=== PATIENT | female | born 1965 | race Hispanic/Latino ===

== ENCOUNTER 2022-04-28 16:36 | Inpatient (IN) | payer BC, SELFPAY ==
[~2022-04-28 16:36] MED LIST: Iopamidol-370 76% 500 ML 1 ML ONE
[2022-04-28] MEDS ORDERED: LORazepam 2 MG/ML SYR.(CARPUJECT) ONE ×2 (17:02→17:03)
[2022-04-28 17:13] LABS: #Eosinphils 0.1 thou/uL (0.0-0.7); #Lymphocytes 0.9 thou/uL (1.20-3.40); #Monocytes 0.3 thou/uL (0.11-0.59); #Neutrophils 5.7 thou/uL (1.40-6.50); %Basophils 0.1 % (0.0-1.0); %Eosinophils 1.9 % (0.0-10.0); %Lymphocytes 12.2 % (21.0-51.0); %Monocytes 4.3 % (0.0-10.0); %Neutrophils 81.5 % (42.0-75.0); Hemoglobin 12.2 g/dL (12.0-16.0); Mean Corpuscular HGB CONC 34.7 g/dL (32.0-36.0); Mean Corpuscular Volume 92.4 fl (78.0-98.0); Mean Platelet Volume 7.4 fL (7.4-10.4); Platelet Count 185 10x3/uL (130-400); RBC Distribution Width 11.2 % (11.5-14.5); Red Blood Cell (RBC) Count 3.82 mill/uL (4.20-5.40)
[2022-04-28 17:34] LABS: ALT (SGPT) 52 U/L (8-55); AST (SGOT) 52 U/L (5-34); Albumin 3.7 g/dL (3.5-5.0); Alkaline Phosphatase 163 U/L (40-110); Anion Gap 10 mmol/L (10-20); BUN (Urea Nitrogen) 15 mg/dL (9.8-20.1); Bilirubin, Total 1.2 mg/dL (0.2-1.2); Calc. Creatinine Clearance 0 mL/min (70-130); Calcium 8.3 mg/dL (7.8-10.44); Carbon Dioxide 25 mmol/L (22-29); Chloride 108 mmol/L (98-107); Estimated GFR 108; Globulin 3.5 g/dL (2.4-3.5); Glucose 98 mg/dL (70-105); Lipase 20 U/L (8-78); Protein, Total 7.2 g/dL (6.0-8.3); Sodium 139 mmol/L (136-145)
[2022-04-28] MEDS ORDERED: Amlodipine 5 MG TAB ONE ×2 (17:50→17:51)
[2022-04-28] MEDS ORDERED: Acetaminophen 500 MG TAB ONE (18:00)
[2022-04-28] MEDS ORDERED: hydrALAZINE 20 MG/ML VIAL ONE (18:24)
[2022-04-28 18:40] LABS: Bilirubin Negative (Negative); Blood, Urine Negative (Negative); Clarity Clear (Clear); Glucose, Urine (Dipstick) Normal (Negative); Ketone, Urine Negative (Negative); Leukocyte Negative Leu/uL (Negative); Nitrite Negative (Negative); Protein, Urine (Dipstick) Negative (Neg-Trace); Specific Gravity, Urine 1.023 (1.002-1.036); Urobilinogen Normal mg/dL (Less than 2); pH, Urine 6.5 (5.0-9.0)
[2022-04-28] MEDS ORDERED: HYDROcodone/Acetaminophen 5/325 mg Tablet PO PRN (19:11)
[2022-04-28] MEDS ORDERED: Ondansetron ODT 4 MG TAB PO PRN (19:11)
[2022-04-28] MEDS ORDERED: Ondansetron PF 4 MG/2 ML Vial IVP PRN (19:11)
[2022-04-28] MEDS ORDERED: Sodium Chloride 0.9% 1,000 ML IV SCH (19:15)
[2022-04-28 20:14] LABS: SARS-CoV-2 NAA Rapid Test Not Detected (NotDetected)
[2022-04-28 21:21] VITALS: BMI 30.2
[2022-04-28] MEDS: Sodium Chloride 0.9% 1,000 ML IV SCH (21:44)
[2022-04-28] MEDS ORDERED: Piperacillin/Tazobactam 3.375 GM in Sodium Chloride 0.9% 100 ML IVPB SCH (22:45)
[2022-04-29] MEDS: Piperacillin/Tazobactam 3.375 GM in Sodium Chloride 0.9% 100 ML IVPB SCH ×3 (01:27→17:26)
[2022-04-29] MEDS: Sodium Chloride 0.9% 1,000 ML IV SCH ×3 (04:59→17:28)
[2022-04-29 05:54] LABS: #Eosinphils 0.1 thou/uL (0.0-0.7); #Lymphocytes 0.9 thou/uL (1.20-3.40); #Monocytes 0.4 thou/uL (0.11-0.59); #Neutrophils 3.3 thou/uL (1.40-6.50); %Basophils 0.8 % (0.0-1.0); %Eosinophils 2.5 % (0.0-10.0); %Lymphocytes 18.2 % (21.0-51.0); %Monocytes 8.3 % (0.0-10.0); %Neutrophils 70.1 % (42.0-75.0); Hemoglobin 11.2 g/dL (12.0-16.0); Mean Corpuscular HGB CONC 34.2 g/dL (32.0-36.0); Mean Corpuscular Hemoglobin 31.6 pg (27.0-31.0); Mean Corpuscular Volume 92.3 fl (78.0-98.0); Mean Platelet Volume 7.4 fL (7.4-10.4); Platelet Count 169 10x3/uL (130-400); Red Blood Cell (RBC) Count 3.54 mill/uL (4.20-5.40); White Blood Cell (WBC) Count 4.7 10x3/uL (4.8-10.8)
[2022-04-29 06:11] LABS: Anion Gap 10 mmol/L (10-20); BUN (Urea Nitrogen) 11 mg/dL (9.8-20.1); Calc. Creatinine Clearance 123 mL/min (70-130); Calcium 7.9 mg/dL (7.8-10.44); Carbon Dioxide 22 mmol/L (22-29); Cardiac Risk 2.7 (Less than 4.5); Chloride 108 mmol/L (98-107); Cholesterol 132 mg/dl (< 200 Desired); Estimated GFR 108; Glucose 104 mg/dL (70-105); HDL Cholesterol 49 mg/dL (>60 Neg Risk); LDL Cholesterol, Calculated 71 mg/dL; Potassium 3.3 mmol/L (3.5-5.1); Sodium 137 mmol/L (136-145); Triglycerides 58 mg/dL (Less than 150)
[2022-04-29] MEDS: Acetaminophen 325 MG TAB PO PRN ×2 (08:29→19:22)
[2022-04-29 09:40] LABS: Free T4 (Free Thyroxine) 1.29 ng/dL (0.70-1.48)
[2022-04-29] MEDS: Propranolol 40 MG TAB PO SCH ×2 (09:55→20:49)
[2022-04-29 17:13] LABS: Campy jejuni + coli by PCR Negative (Negative); STEC Shiga Toxin 1+2 Negative (Negative); Salmonella spp. by PCR Negative (Negative); Shigella spp + EIEC by PCR Negative (Negative)
[2022-04-30] MEDS: Piperacillin/Tazobactam 3.375 GM in Sodium Chloride 0.9% 100 ML IVPB SCH ×2 (01:44→09:21)
[2022-04-30] MEDS: Propranolol 40 MG TAB PO SCH (09:20)
[2022-04-30] MEDS: Acetaminophen 325 MG TAB PO PRN (09:20)
[2022-04-30 11:47] VITALS: BP 106/57; TEMP 98.2
== END 2022-04-30 14:39 | disposition home or self-care (01) | DRG 392 ==
LOC: ERS 16:36 → 2SW 19:09 → OBSVTOIN 04-30 10:11
PROVIDERS: ADMIT Internal Medicine; ATTEND Hospitalist
DX: K52.9 Noninfective gastroenteritis and colitis, unspecified (principal); I16.0 Hypertensive urgency; I72.8 Aneurysm of other specified arteries; K76.0 Fatty (change of) liver, not elsewhere classified; E05.90 Thyrotoxicosis, unspecified without thyrotoxic crisis or storm; Z20.822 Contact with and (suspected) exposure to COVID-19; Z98.890 Other specified postprocedural states
CPT/HCPCS: 36415; 74177; 76536; 80048; 80053; 80061; 81003; 83605; 83690; 83880; 84439; 84443; 84481; 84484; 85025; 86140; 87040; 87324; 87449; 87505; 93005; 96361; 96365; 96366; 96372; 96374; 96375; G0378; J0360; J1650; J2060; J2543; J3490; J7050; Q9967